=== PATIENT | male | born 1990 | race Caucasian/White ===

== ENCOUNTER 2019-01-09 19:39 | Inpatient (IN) | payer MEDICAID, OTHER ==
[~2019-01-09] VITALS: Ht 185.4 cm; Wt 89.3 kg
--- NOTE | 2019-01-09 19:49 | NUR ---
[facility] FOR C/O RIGHT LOWER ABD PAIN X 4 DAYS, DENIES N/V/D
--- NOTE | 2019-01-09 20:34 | NUR ---
ATTEMPTED US, PT NOT IN ROOM aa
[2019-01-09 20:56] LABS: MEAN CORPUSCULAR HEMOGLOBIN 30.6 pg (27.5-34.5); MEAN CORPUSCULAR HGB CONC 33.1 g/dL (33.2-36.2); MEAN CORPUSCULAR VOLUME 92.3 fL (81-97); MEAN PLATELET VOLUME 8.8 fL (7.4-10.4); PLATELET COUNT 235 x10^3/uL (130-400); RED BLOOD COUNT 4.77 x10^6/uL (4.38-5.82); RED CELL DISTRIBUTION WIDTH 13.6 % (9.4-14.8)
[2019-01-09 21:06] LABS: ALANINE AMINOTRANSFERASE 27 U/L (12-78); ALBUMIN 4.2 g/dL (3.4-5.0); ANION GAP 6 mmol/L (5-15); CALCIUM 9.3 mg/dL (8.5-10.1); CHLORIDE 102 mmol/L (98-107); CREATININE 0.98 mg/dL (0.7-1.3)
[2019-01-09 21:08] LABS: ALKALINE PHOSPHATASE 70 U/L (45-117); BILIRUBIN,TOTAL 1.2 mg/dL (0.2-1.0)
[2019-01-09 21:32] LABS: BASOPHILS # (AUTO) 0.07 x10^3/uL (0-0.1); BASOPHILS % (AUTO) 0 % (0-1); EOSINOPHILS % (AUTO) 0 % (1-7); LYMPHOCYTES # (AUTO) 0.83 x10^3/uL (1-3.4); LYMPHOCYTES % (AUTO) 3 % (22-44); MD SCAN; MONOCYTES # (AUTO) 2.34 x10^3/uL (0.2-0.8); MONOCYTES % (AUTO) 9 % (2-9); NEUTROPHILS # (AUTO) 22.48 x10^3/uL (1.8-6.8); NEUTROPHILS % (AUTO) 87 % (42-75)
[2019-01-09] MEDS ORDERED: ONDANSETRON 2MG/ML, 2ML ONE (21:36)
[2019-01-09] MEDS ORDERED: MORPHINE SULFATE 4 MG/ML, 1ML ONE (21:37)
[2019-01-09] MEDS ORDERED: CEFOTETAN PMX 1GM/50ML 50 ML ONE (21:37)
[2019-01-09] MEDS ORDERED: CEFOTETAN PMX 1GM/50ML 50 ML IV ONE (22:00)
[2019-01-09] MEDS ORDERED: ONDANSETRON 2MG/ML, 2ML IVPush ONE (22:00)
[2019-01-09] MEDS ORDERED: morphine SULFATE 10 MG/ML, 1ML IVPush ONE (22:00)
--- NOTE | 2019-01-09 22:09 | NUR ---
PT PIV PLACED AND BLOOD CULTURES DRAWN. PT MEDICATED PER EMAR. LAST PO INTAKE 1100AM.
--- NOTE | 2019-01-09 22:11 | NUR ---
REPORT TO MIKE MCWILLIAMS.
[2019-01-09] MEDS ORDERED: MIDAZOLAM 1 MG/ML, 2ML ONE (22:49)
[2019-01-09] MEDS ORDERED: FENTANYL PF 250 MCG/5ML ONE (22:49)
[2019-01-09] MEDS ORDERED: PROPOFOL 10 MG/ML, 20ML ONE (23:26)
[2019-01-09] MEDS ORDERED: SUCCINYLCHOLINE 20 MG/ML, 10ML ONE (23:26)
[2019-01-09] MEDS ORDERED: ROCURONIUM 10MG/ML,5ML ONE (23:26)
[2019-01-09] MEDS ORDERED: DEXAMETHASONE 4 MG/ML, 1ML ONE (23:26)
[2019-01-09] MEDS ORDERED: FENTANYL PF 100 MCG/2ML IV PRN (23:30)
[2019-01-09] MEDS ORDERED: ONDANSETRON ODT 8 MG PO PRN (23:30)
[2019-01-09] MEDS ORDERED: MIDAZOLAM 1 MG/ML, 2ML IV PRN (23:30)
[2019-01-09] MEDS ORDERED: MORPHINE SULFATE 4 MG/ML, 1ML IVPush PRN (23:30)
[2019-01-09] MEDS ORDERED: PROMETHAZINE 25 MG/ML, 1ML IV PRN (23:30)
[2019-01-09] MEDS ORDERED: OXYcodone 5 MG/5 ML ORAL.SOL UDC PO PRN (23:30)
[2019-01-09] MEDS ORDERED: EPHEDRINE 50 MG/ML, 1ML IM PRN (23:30)
[2019-01-09] MEDS ORDERED: ONDANSETRON 2MG/ML, 2ML IV PRN (23:30)
[2019-01-09] MEDS ORDERED: MEPERIDINE/PF 25MG/0.5ML IVPush PRN (23:30)
[2019-01-09] MEDS ORDERED: DIPHENHYDRAMINE 50 MG/ML, 1ML IVPush PRN (23:30)
[2019-01-09] MEDS ORDERED: BUPIVACAINE/PF-EPI 0.5% 1:200K INFIL ONE (23:53)
[2019-01-10] MEDS ORDERED: OXYcodone 5 MG/5 ML ORAL.SOL UDC ONE (00:41)
[2019-01-10] MEDS ORDERED: FENTANYL PF 100 MCG/2ML ONE (00:41)
[2019-01-10] MEDS ORDERED: ENALAPRILAT 1.25 MG/ML, 2ML IV PRN (01:30)
[2019-01-10] MEDS ORDERED: hydrALAzine 20 MG/ML, 1ML IV PRN (01:30)
[2019-01-10] MEDS ORDERED: DIPHENHYDRAMINE 50 MG CAPSULE PO PRN (01:30)
[2019-01-10] MEDS ORDERED: ACETAMINOPHEN 650 MG SUPP PR PRN (01:30)
[2019-01-10] MEDS ORDERED: ONDANSETRON 2MG/ML, 2ML IVPush PRN (01:30)
[2019-01-10] MEDS ORDERED: morphine SULFATE 10 MG/ML, 1ML IV PRN (03:00)
[2019-01-10] MEDS: KETOROLAC 30 MG/1 ML IV PRN ×2 (03:14→21:49)
[2019-01-10] MEDS: DIPHENHYDRAMINE 50 MG/ML, 1ML IVPush PRN ×2 (03:15→21:49)
[2019-01-10] MEDS: D5%-LACTATED RINGERS 1,000 ML IV SCH ×3 (03:18→16:22)
[2019-01-10] MEDS: ENOXAPARIN 40 MG/0.4 ML SQ SCH (04:06)
[2019-01-10 07:33] VITALS: BP 96/60
[2019-01-10] MEDS: CEFOTETAN PMX 1GM/50ML 50 ML IVPB SCH ×2 (09:44→21:49)
[2019-01-10 14:02] VITALS: BP 100/56
[2019-01-10 21:44] VITALS: BP 105/63
[2019-01-11] MEDS: D5%-LACTATED RINGERS 1,000 ML IV SCH ×4 (01:22→22:56)
[2019-01-11 02:21] VITALS: BP 91/52
[2019-01-11] MEDS: ENOXAPARIN 40 MG/0.4 ML SQ SCH (03:52)
[2019-01-11 08:49] VITALS: BP 110/48
[2019-01-11] MEDS: ACETAMINOPHEN 650 MG/20.3 ML UDC PO PRN ×2 (09:06→22:55)
[2019-01-11] MEDS: CEFOTETAN PMX 1GM/50ML 50 ML IV SCH ×2 (10:11→22:56)
[2019-01-11] MEDS: DOCUSATE 50 MG/5 ML, 10ML UDC PO SCH ×2 (10:11→22:44)
[2019-01-11 14:12] VITALS: BP 103/63
[2019-01-11 20:49] VITALS: BP 109/68
[2019-01-11] MEDS: POLYETHYLENE GLYCOL 17 GM PACKET PO SCH (22:44)
[2019-01-11] MEDS: KETOROLAC 30 MG/1 ML IV PRN (22:56)
[2019-01-12 03:10] VITALS: BP 104/66
[2019-01-12] MEDS: ACETAMINOPHEN 650 MG/20.3 ML UDC PO PRN (04:00)
[2019-01-12] MEDS: ENOXAPARIN 40 MG/0.4 ML SQ SCH (04:00)
[2019-01-12 05:40] LABS: MEAN CORPUSCULAR HEMOGLOBIN 30.4 pg (27.5-34.5); MEAN CORPUSCULAR HGB CONC 32.7 g/dL (33.2-36.2); MEAN PLATELET VOLUME 8.8 fL (7.4-10.4); PLATELET COUNT 235 x10^3/uL (130-400); RED BLOOD COUNT 3.83 x10^6/uL (4.38-5.82); RED CELL DISTRIBUTION WIDTH 13.6 % (9.4-14.8)
[2019-01-12 05:49] LABS: ALBUMIN 2.8 g/dL (3.4-5.0); ANION GAP 5 mmol/L (5-15); CALCIUM 8.5 mg/dL (8.5-10.1); CHLORIDE 105 mmol/L (98-107)
[2019-01-12 05:54] LABS: ALANINE AMINOTRANSFERASE 72 U/L (12-78); ALKALINE PHOSPHATASE 87 U/L (45-117); BILIRUBIN,TOTAL 0.6 mg/dL (0.2-1.0); CREATININE 1.13 mg/dL (0.7-1.3); TOTAL PROTEIN 6.5 g/dL (6.4-8.2)
[2019-01-12 06:32] LABS: MD YES
[2019-01-12 07:06] LABS: BASOPHILS # (AUTO) 0.05 x10^3/uL (0-0.1); BASOPHILS % (AUTO) 1 % (0-1); EOSINOPHILS % (AUTO) 1 % (1-7); LYMPHOCYTES # (AUTO) 1.63 x10^3/uL (1-3.4); LYMPHOCYTES % (AUTO) 15 % (22-44); MONOCYTES # (AUTO) 1.51 x10^3/uL (0.2-0.8); MONOCYTES % (AUTO) 14 % (2-9); NEUTROPHILS # (AUTO) 7.65 x10^3/uL (1.8-6.8); NEUTROPHILS % (AUTO) 70 % (42-75)
[2019-01-12 07:54] VITALS: BP 100/59
[2019-01-12] MEDS: DOCUSATE 50 MG/5 ML, 10ML UDC PO SCH ×2 (08:08→20:27)
[2019-01-12] MEDS: POLYETHYLENE GLYCOL 17 GM PACKET PO SCH ×3 (08:08→20:27)
[2019-01-12] MEDS: KETOROLAC 30 MG/1 ML IV PRN (08:11)
[2019-01-12] MEDS: D5%-LACTATED RINGERS 1,000 ML IV SCH ×2 (08:12→17:06)
[2019-01-12] MEDS: CEFOTETAN PMX 1GM/50ML 50 ML IV SCH ×2 (10:10→21:56)
[2019-01-12 14:54] VITALS: BP 99/64
[2019-01-12 19:45] VITALS: BP 103/64
[2019-01-13] MEDS: D5%-LACTATED RINGERS 1,000 ML IV SCH ×2 (01:22→07:29)
[2019-01-13 02:17] VITALS: BP 106/68
[2019-01-13] MEDS: ENOXAPARIN 40 MG/0.4 ML SQ SCH (03:53)
[2019-01-13 07:25] VITALS: BP 118/65
[2019-01-13] MEDS: DOCUSATE 50 MG/5 ML, 10ML UDC PO SCH (08:59)
[2019-01-13] MEDS: POLYETHYLENE GLYCOL 17 GM PACKET PO SCH (08:59)
[2019-01-13] MEDS ORDERED: TRAM50TA2 PO (09:13)
[2019-01-13] MEDS: CEFOTETAN PMX 1GM/50ML 50 ML IV SCH (09:50)
== END 2019-01-13 11:05 | disposition home or self-care (01) | DRG 419 ==
LOC: ED 20:21 → EDIP 21:56 → OBSVTOIN 21:56 → 4NOR 22:26
PROVIDERS: ADMIT Surgery; ATTEND Surgery
PROC: 0FT44ZZ Resection of Gallbladder, Percutaneous Endoscopic Approach (ICD-10-PCS; principal; 2019-01-09 23:00)
DX: K81.0 Acute cholecystitis (principal); K66.0 Peritoneal adhesions (postprocedural) (postinfection)
CPT/HCPCS: 36415; 74021; 99285; J7121; 76700; 80053; 83605; 83690; 85025; 87040; 88304; 96374; 96375; G0378; J1100; J1650; J1885; J2250; J2405; J2704; J3010; J0330; J1200; J2270; J3490